=== PATIENT | male | born 1985 | race Caucasian/White ===

== ENCOUNTER 2018-05-20 09:23 | Emergency (ER) | payer BC ==
--- NOTE | 2018-05-20 10:25 | EDPHYS ---
Physician Documentation [facility] Name: Kaiser Naylor Age: 32 yrs Sex: Male : 1985 Arrival Date: 05/20/2018 Time: 09:26 Bed 14 Private MD: ED Physician Anna Salazar HPI: 05/20 10:21 This 32 yrs old Male presents to ER via Ambulatory with complaints of ma2 Abdominal Pain. 10:21 The patient presents with abdominal pain. Onset: The symptoms/episode began/occurred ma2 gradually, 3 month(s) ago. The symptoms do not radiate. Associated signs and symptoms: Pertinent negatives: nausea, vomiting, and diarrhea, nausea and vomiting, constipation, dysuria. The symptoms are described as crampy. Severity of pain: At its worst the pain was moderate in the emergency department the pain is unchanged. The patient has experienced similar episodes in the past. here with pain x 3 months that is unchanged, discussed with his GI office Sakshi who works with Dr. Aranda, they will schedule ercp as outpatient, no indication for blood work here and he declined pain controle . Historical: - Allergies: 09:29 No Known Allergies; sv - PMHx: 09:29 None; sv - PSHx: 09:29 Cholecystectomy; left forearm; sv - Immunization history:: Flu vaccine is not up to date. - Social history:: Smoking status: Patient/guardian denies using tobacco. - Ebola Screening: : No symptoms or risks identified at this time. ROS: 10:21 Constitutional: Negative for fever, chills, and weight loss. ma2 10:21 Abdomen/GI: Positive for abdominal pain, Negative for nausea and vomiting, vomiting, rectal bleeding, flatulence. 10:21 All other systems are negative. Exam: 10:21 Constitutional: This is a well developed, well nourished patient who is awake, alert, ma2 and in no acute distress. Chest/axilla: Normal chest wall appearance and motion. Nontender with no deformity. No lesions are appreciated. Cardiovascular: Regular rate and rhythm with a normal S1 and S2. No gallops, murmurs, or rubs. Normal PMI, no JVD. No pulse deficits. Respiratory: Lungs have equal breath sounds bilaterally, clear to auscultation and percussion. No rales, rhonchi or wheezes noted. No increased work of breathing, no retractions or nasal flaring. Abdomen/GI: Soft, non-tender, with normal bowel sounds. No distension or tympany. No guarding or rebound. No evidence of tenderness throughout. Vital Signs: 09:29 BP 112 / 83; Pulse 115; Resp 18; Temp 98.2; Pulse Ox 98% ; Weight 77.11 kg; Height 5 sv ft. 9 in. (175.26 cm); Pain 7/10; 09:29 Body Mass Index 25.10 (77.11 kg, 175.26 cm) sv MDM: 09:38 Patient medically screened. ma2 10:21 Differential diagnosis: Cholelithiasis, gastritis, gastroesophageal reflux disease, ma2 non-specific abd pain. Data reviewed: vital signs, nurses notes. Counseling: I had a detailed discussion with the patient and/or guardian regarding: the historical points, exam findings, and any diagnostic results supporting the discharge/admit diagnosis, the presence of at least one elevated blood pressure reading (>120/80) during this emergency department visit, the need for outpatient follow up. 05/20 10:00 Order name: Urine Dipstick--Ancillary (enter results) bd Administered Medications: No medications were administered Disposition: 05/20/18 10:24 Discharged to Home. Impression: Generalized abdominal pain. - Condition is Stable. - Discharge Instructions: Abdominal Pain, Adult. - Medication Reconciliation Form, Thank You Letter, Antibiotic Education, Prescription Opioid Use form. - Follow up: Stephan Milan MD; When: Tomorrow; Reason: Continuance of care. Signatures: Dispatcher [employer] Vale Dowling RN RN sv Gregorio Schreiber RN RN jl7 Anna Salazar MD MD ma2 Corrections: (The following items were deleted from the chart) 10:52 10:24 05/20/2018 10:24 Discharged to Home. Impression: Generalized abdominal pain. jl7 Condition is Stable. Forms are Medication Reconciliation Form, Thank You Letter, Antibiotic Education, Prescription Opioid Use. Follow up: Stephan Milan; When: Tomorrow; Reason: Continuance of care. ma2
--- NOTE | 2018-05-20 10:25 | ER ---
Nurse's Notes [facility] Name: Kaiser Naylor Age: 32 yrs Sex: Male : 1985 Arrival Date: 05/20/2018 Time: : Bed 14 Private MD: Diagnosis: Generalized abdominal pain Presentation: 05/20 09:27 Presenting complaint: Patient states: stabbing RUQ pain, right back pain, "burning pain sv in stomach", s/p EGD done Sunday.(stomach erosion, gastritis found). Transition of care: patient was not received from another setting of care. Onset of symptoms was April 2018. Care prior to arrival: None. 09: Method Of Arrival: Ambulatory sv 09: Acuity: KAMRAN 3 sv 10:00 Risk Assessment: Do you want to hurt yourself or someone else? Patient reports no jl7 desire to harm self or others. Initial Sepsis Screen: Does the patient meet any 2 criteria? No. Patient's initial sepsis screen is negative. Does the patient have a suspected source of infection? No. Patient's initial sepsis screen is negative. Triage Assessment: 09:30 General: Appears in no apparent distress. uncomfortable, Behavior is calm, cooperative, sv appropriate for age. Pain: Complains of pain in posterior aspect of right lateral abdomen and right upper quadrant Pain currently is 7 out of 10 on a pain scale. Neuro: Level of Consciousness is awake, alert, obeys commands, Oriented to person, place, time, situation, Moves all extremities. Full function Gait is steady. Respiratory: Respiratory effort is even, unlabored, Respiratory pattern is regular, symmetrical. Historical: - Allergies: 09:29 No Known Allergies; sv - PMHx: 09:29 None; sv - PSHx: :29 Cholecystectomy; left forearm; sv - Immunization history:: Flu vaccine is not up to date. - Social history:: Smoking status: Patient/guardian denies using tobacco. - Ebola Screening: : No symptoms or risks identified at this time. Screenin:00 Abuse screen: Denies threats or abuse. Denies injuries from another. Nutritional jl7 screening: No deficits noted. Tuberculosis screening: No symptoms or risk factors identified. 10:05 Fall Risk None identified. jl7 Assessment: 10:00 General: Appears in no apparent distress. uncomfortable, Behavior is calm, cooperative, jl7 appropriate for age. Pain: Complains of pain in right upper quadrant Pain does not radiate. Pain currently is 7 out of 10 on a pain scale. Quality of pain is described as burning, stabbing, Pain began a couple months ago Is continuous. Neuro: Level of Consciousness is awake, alert, obeys commands, Oriented to person, place, time, situation. Cardiovascular: Patient's skin is warm and dry. Respiratory: Airway is patent Respiratory effort is even, unlabored, Respiratory pattern is regular, symmetrical. GI: Abdomen is flat, non-distended, Reports upper abdominal pain. : No signs and/or symptoms were reported regarding the genitourinary system. EENT: No signs and/or symptoms were reported regarding the EENT system. Derm: Skin is pink, warm \\T\\ dry. Derm:. Musculoskeletal: No signs and/or symptoms reported regarding the musculoskeletal system. 10:05 Reassessment: Pt reports he had an EGD on Sunday that showed gastritis and erosion. Was jl7 instructed not to take any pain medications due to the erosion. Dr. Montalvo's office instructed him to go to the ER if he's not better by Sunday. Pt reports continued pain, no relief. Pt's Dad states "It's frustrating to be sent back to the ER again and we're not sure why we're here." ERD notified of pt and families concerns at this time. Vital Signs: 09:29 BP 112 / 83; Pulse 115; Resp 18; Temp 98.2; Pulse Ox 98% ; Weight 77.11 kg; Height 5 sv ft. 9 in. (175.26 cm); Pain 7; 09:29 Body Mass Index 25.10 (77.11 kg, 175.26 cm) sv ED Course: 09:26 Patient arrived in ED. sv 09:28 Triage completed. sv 09:30 Arm band placed on. sv 09:31 Anna Salazar MD is Attending Physician. ma2 09:39 Gregorio Schreiber, ELVIRA is Primary Nurse. 7 10:02 Urine Dipstick--Ancillary (enter results) Sent. 5 10:03 Patient has correct armband on for positive identification. Bed in low position. Call [facility] light in reach. Adult w/ patient. Pulse ox on. NIBP on. 10:03 Urine collected: clean catch specimen, cloudy. 5 10:24 Stephan Milan MD is Referral Physician. ma2 10:36 No provider procedures requiring assistance completed. Patient did not have IV access jl7 during this emergency room visit. Administered Medications: No medications were administered Outcome: 10:24 Discharge ordered by . ma2 10:36 Discharged to home ambulatory. jl7 10:36 Condition: stable 10:36 Discharge instructions given to patient, family, Instructed on discharge instructions, follow up and referral plans. Demonstrated understanding of instructions, follow-up care. 10:52 Patient left the ED. 7 Signatures: Vale Acosta RN RN Serina Navarro 5 Gregorio Schreiber RN RN jl7 Anna Salazar MD MD fl2 Corrections: (The following items were deleted from the chart) 09:30 09:29 Resp 18bpm; Pulse Ox 98%; Temp 98.2F; 77.11 kg; Height 5 ft. 9 in.; BMI: 25.1; sv Pain 7/10; sv
[2018-05-20 16:32] LABS: Urine Blood NEGATIVE (NEG); Urine Glucose 2+ (NEG); Urine Protein NEGATIVE (NEG); Urine pH 5.5 (5.0-7.0)
== END 2018-05-20 10:52 | disposition home or self-care (01) ==
LOC: ER 09:23
DX: R10.84 Generalized abdominal pain (principal)
CPT/HCPCS: 81003; 99283